=== PATIENT | male | born 1980 | race Hispanic/Latino ===

== ENCOUNTER 2024-09-17 09:44 | Emergency (ER) | payer OTHER ==
[~2024-09-17] VITALS: Ht 182.9 cm; Wt 107.2 kg
[2024-09-17 09:48] VITALS: PULSE 88; RESP 18; TEMP 98.1
[2024-09-17] MEDS ORDERED: IBUPROFEN200 MG PO (10:01)
[2024-09-17] MEDS: BACITRACIN ZINC 0.9GM TP ONE (10:22)
[2024-09-17 11:01] VITALS: BP 191/70; PULSE 70; RESP 16; TEMP 98.3; O2SAT 98
== END 2024-09-17 11:00 | disposition home or self-care (01) ==
LOC: FSED 09:50
DX: S81.012A Laceration without foreign body, left knee, initial encounter (principal); M25.562 Pain in left knee; W22.8XXA Striking against or struck by other objects, initial encounter; Y99.0 Civilian activity done for income or pay
CPT/HCPCS: 99284